=== PATIENT | female | born 1955 | race Caucasian/White ===

== ENCOUNTER 2017-02-18 07:07 | Emergency (ER) | payer BC ==
[2017-02-18] MEDS ORDERED: KETOROLAC TROMETHAMINE 60 MG/2 ML VIAL ONE (07:35)
--- NOTE | 2017-02-18 07:59 | ER NURSING DOCUMENTATION ---
Nurse's Notes [facility] Name:Alva Huston Age:61 yrs Sex:Female :1955 Arrival Date:02/18/2017 Time:07:07 Bed1 Private MD: Diagnosis:Back Pain w/ Sciatica Presentation: 02/18 07:10 Presenting complaint: Patient states: pt has had right sided sciatic pain for the last st few days. She states that she can not get on top of the pain despite massage, chiropractic adjustment and warm baths. She has a long flight today and need some help with the pain. Transition of care: patient was not received from another setting of care. 07:10 Method Of Arrival: Private Vehicle 07:19 Acuity: JENNIFER 2 st 07:19 Notified ED Physician of Dr. Bardales notified. st Triage Assessment: 07:10 General: Appears uncomfortable, Behavior is cooperative. Pain: Complains of pain in st right lower back Pain radiates to right leg Pain currently is 10 out of 10 on a pain scale. Quality of pain is described as shooting, Pain began few days ago and it is getting worst. Cardiovascular: No deficits noted. Respiratory: No deficits noted. GI: No deficits noted. Musculoskeletal: Circulation, motion, and sensation intact in the right leg. Historical: - Allergies: No known drug Allergies; - Home Meds: 1. trazodone Oral - PMHx: CANCER, BREAST; - PSHx: HYSTERECTOMY; - Tetanus: unknown will f/u with PCP. - Ebola Screening: : Patient denies exposure to infectious person. Patient denies travel to an Ebola-affected area in the 21 days before illness onset. . - Social history: Smoking status: Patient states was never smoker of tobacco. Patient uses alcohol occasionally. marijuana. Screenin:36 Infectious Disease Risk None. Abuse screen: Denies threats or abuse. Denies injuries st from another. pt feels safe at home. Nutritional screening: No deficits noted. Vital Signs: 07:10 BP 137 / 100; Pulse 68; Resp 16; Temp 98.5; Pulse Ox 93% on R/A; Pain 10/10; st 07:58 Pain 8/10; st ED Course: 07:09 Patient arrived in ED. ama 07:18 Cassy Urban, RN is Primary Nurse. st 07:[address] 07:36 Valuables Remains with patient Patient has correct armband on for positive st identification. pt is sitting in a chair because it is most comfortable for her. 07:37 Arjun Bardales MD is Attending Physician. sc Administered Medications: 07:26 Drug: Toradol 60 mg; Route: IM; Site: right gluteus; st 07:52 Follow up: Response: Pain is decreased st 07:57 Drug: HYDROcodone-acetaminophen (5mg/325 mg) 1-2 tabs 1 tabs; Route: PO; st 07:58 Follow up: Response: sent home with pt who is going directly to the air port. st Outcome: 07:52 Discharge ordered by . dc 07:58 Discharged to home ambulatory. st 07:58 Condition: improved 07:58 Discharge instructions given to patient, Instructed on discharge instructions, follow up and referral plans. medication usage. 07:59 Patient [address] the ED[address] st Signatures: Cassy Urban RN RN st Arjun Bardales MD MD dc Kaushik Zamudio, Reg Reg ama
--- NOTE | 2017-02-18 07:59 | ER PHYSICIAN DOCUMENTATION ---
Physician Documentation [facility] Name:Alva Huston Age:61 yrs Sex:Female :1955 Arrival Date:02/18/2017 Time:07:07 Bed1 Private MD: Arjun Bush Disposition: 02/18/17 07:52 Discharged to Home/Self Care. Impression: Back Pain w/ Sciatica. - Condition is Good. - Discharge Instructions: BACK PAIN w/ SCIATICA, BACK CARE TIPS, BACK EXERCISES, Lumbar. - Medical Reconciliation form form. - Follow up: Private Physician; When: 1 week; Reason: Recheck today's complaints. - Problem is new. - Symptoms have improved. HPI: 02/18 07:38 This 61 yrs old Female presents to ER via Private Vehicle with complaints of sc Back Pain. 07:38 The patient presents with pain that is chronic. The symptoms are located in the low sc back. Onset: The symptoms/episode began/occurred at an unknown time. 07:48 The pain radiates down the patient's right lower extremity. Associated signs and sc symptoms: The patient has no apparent associated signs or symptoms. Modifying factors: The patient symptoms are alleviated by heat application, specific position, the patient symptoms are aggravated by any movement. Severity of symptoms: At their worst the symptoms were moderate. The patient has experienced similar episodes in the past, a few times. Historical: - Allergies: No known drug Allergies; - Home Meds: 1. trazodone Oral - PMHx: CANCER, BREAST; - PSHx: HYSTERECTOMY; - Tetanus: unknown will f/u with PCP. - Ebola Screening: : Patient denies exposure to infectious person. Patient denies travel to an Ebola-affected area in the 21 days before illness onset. . - Social history: Smoking status: Patient states was never smoker of tobacco. Patient uses alcohol occasionally. marijuana. ROS: 07:49 Constitutional: Negative for fever, chills, and weight loss. sc Eyes: Negative for injury, pain, redness, and discharge. Neck: Negative for injury, pain, and swelling. MS/Extremity: Negative for injury and deformity. Skin: Negative for injury, rash, and discoloration. 07:49 Neuro: Negative for headache, weakness, numbness, tingling, and seizure. sc 07:49 Back: Positive for pain at rest. Exam: Constitutional: This is a well developed, well nourished patient who is awake, alert, and in no acute distress. Head/Face: Normocephalic, atraumatic. Eyes: Pupils equal round and reactive to light, extra-ocular motions intact. Lids and lashes normal. Conjunctiva and sclera are non-icteric and not injected. Cornea within normal limits. Periorbital areas with no swelling, redness, or edema. Neck: Trachea midline, no thyromegaly or masses palpated, and no cervical lymphadenopathy. Supple, full range of motion without nuchal rigidity, or vertebral point tenderness. No meningismus. Cardiovascular: Regular rate and rhythm with a normal S1 and S2. No gallops, murmurs, or rubs. Normal PMI, no JVD. No pulse deficits. Respiratory: Lungs have equal breath sounds bilaterally, clear to auscultation and percussion. No rales, rhonchi or wheezes noted. No increased work of breathing, no retractions or nasal flaring. 07:50 Skin: Warm, dry with normal turgor. Normal color with no rashes, no lesions, and no sc evidence of cellulitis. 07:50 Back: pain, that is moderate, of the lumbar area, ROM is painful, normal spinal alignment noted, CVA tenderness, is absent, vertebral tenderness, is not appreciated, Straight leg raises: right lower extremity does not illicit pain, left lower extremity illicits pain, at 45 degrees. 07:50 Neuro: Sensation: is normal, Gait: is steady, Deep tendon reflexes are 1 (trace) + in sc the right patellar, right Achilles, left patellar and left Achilles. Vital Signs: 07:10 BP 137 / 100; Pulse 68; Resp 16; Temp 98.5; Pulse Ox 93% on R/A; Pain 10/10; st 07:58 Pain 8/10; st MDM: 07:37 Patient medically screened. sc 07:51 Differential diagnosis: chronic back pain, Fatigue Fracture. Data reviewed: vital sc signs, nurses notes, and as a result, I will discharge patient, prescribe pain medication, hydrocodone, Toradol. Counseling: I had a detailed discussion with the patient and/or guardian regarding: the historical points, exam findings, and any diagnostic results supporting the discharge/admit diagnosis, the need for outpatient follow up, to return to the emergency department if symptoms worsen or persist or if there are any questions or concerns that arise at home. Dispensed Medications: 07:26 Drug: Toradol 60 mg; Route: IM; Site: right gluteus; st 07:52 Follow up: Response: Pain is decreased st 07:57 Drug: HYDROcodone-acetaminophen (5mg/325 mg) 1-2 tabs 1 tabs; Route: PO; st 07:58 Follow up: Response: sent home with pt who is going directly to the air port. st Signatures: Cassy Urban, RN RN Arjun Montemayor MD MD hi
[2017-02-18] MEDS ORDERED: HYDROcodone/APAP PREPAC 5/325 1 TAB TABLET PO ONE (08:02)
== END 2017-02-18 07:59 | disposition home or self-care (01) ==
LOC: ER 07:07
DX: M54.41 Lumbago with sciatica, right side (principal); Z79.899 Other long term (current) drug therapy; Z85.3 Personal history of malignant neoplasm of breast
CPT/HCPCS: 96372; 99283; J1885